=== PATIENT | female | born 2000 | race African-American/Black ===

== ENCOUNTER 2023-12-30 01:01 | Emergency (ER) | payer OTHER ==
[2023-12-30 01:11] VITALS: BMI 25.7
[2023-12-30] MEDS ORDERED: metroNIDAZOLE 250 MG TABLET ONE (01:44)
[2023-12-30] MEDS ORDERED: BUPIVACAINE HCL/PF 0.5% (5MG/ML) 10 ML VIAL ONE (01:46)
[2023-12-30] MEDS: metroNIDAZOLE 250 MG TABLET PO ONE (01:51)
[2023-12-30] MEDS ORDERED: IBUPROFEN 600 MG TABLET (FP) PO ONE (01:55)
[2023-12-30] MEDS: IBUPROFEN 600 MG TABLET (FP) PO ONE (01:59)
[2023-12-30 02:32] LABS: BASO % 0.5 % (0-2.0); EOS % 0.9 % (0-4.5); HEMATOCRIT 33.9 % (32.4-45.2); LYMPH % 35.4 % (8-40); MCH 24.4 pg (25.7-33.7); MCHC 32.5 g/dl (32.0-36.0); MEAN CELL VOLUME 74.9 fl (80-96); MEAN PLT VOLUME 9.4 fl (7.5-11.1); MONO % 5.1 % (3.8-10.2); NEUT % 58.1 % (42.8-82.8); PLATELET COUNT 267 10^3/uL (134-434); RBC 4.52 M/mm3 (3.60-5.2); WHITE BLOOD COUNT 10.8 K/mm3 (4.0-10.0)
[2023-12-30] MEDS: BUPIVACAINE HCL/PF 0.5% (5 MG/ML) 30 ML VIAL IJ ONE (02:40)
[2023-12-30 03:00] LABS: CHLORIDE 104 mmol/L (98-107); POTASSIUM 3.5 mmol/L (3.5-5.1); SODIUM 137 mmol/L (136-145)
[2023-12-30 03:02] LABS: CALCIUM 9.5 mg/dL (8.5-10.1)
[2023-12-30 03:03] LABS: ALBUMIN 4.2 g/dl (3.4-5.0); ANION GAP 11 mmol/L (4-13); BLOOD UREA NITROGEN 12.2 mg/dL (7-18); CO2 23 mmol/L (21-32); GLUCOSE,RANDOM 150 mg/dL (74-106)
[2023-12-30 03:06] LABS: CREATININE 0.8 mg/dL (0.55-1.3); SGOT/AST 22 U/L (15-37); SGPT/ALT 29 U/L (13-61)
[2023-12-30 03:07] LABS: BILIRUBIN,TOTAL 0.4 mg/dL (0.2-1)
[2023-12-30 03:08] LABS: TOT PROT 8.9 g/dl (6.4-8.2)
[2023-12-30 03:09] LABS: ALK PHOS 91 U/L (45-117)
[2023-12-30 05:37] VITALS: BP 129/79; PULSE 100; RESP 18; TEMP 97.9
== END 2023-12-30 06:09 | disposition home or self-care (01) ==
LOC: JER 01:01
DX: K08.89 Other specified disorders of teeth and supporting structures (principal); K02.9 Dental caries, unspecified
CPT/HCPCS: 36415; 70487-TC; 80053; 84702; 85025; 99284-25; Q9967

== ENCOUNTER 2024-04-15 12:16 | Emergency (ER) | payer OTHER ==
[2024-04-15 12:30] VITALS: BP 135/89; PULSE 84; RESP 17; TEMP 98.8; BMI 25.0
[2024-04-15] MEDS ORDERED: AMOX TR/POT CLAV 875MG/125MG TABLETS (FP) ONE (14:14)
[2024-04-15] MEDS: AMOX TR/POT CLAV 875MG/125MG TABLETS (FP) PO ONE (14:16)
== END 2024-04-15 14:27 | disposition home or self-care (01) ==
LOC: JERFT 12:16
DX: T16.2XXA Foreign body in left ear, initial encounter (principal); T16.1XXA Foreign body in right ear, initial encounter; H60.12 Cellulitis of left external ear; H60.11 Cellulitis of right external ear
CPT/HCPCS: 99283-25

== ENCOUNTER 2024-07-26 15:58 | Emergency (ER) | payer OTHER ==
[2024-07-26 16:04] VITALS: BP 133/79; PULSE 95; RESP 20; TEMP 98.6; BMI 25.0
[2024-07-26 18:26] LABS: THROAT:GRP A STREP NOT DETECTED (NOTDETECTED)
[2024-07-26 19:10] LABS: HIV INTERPRETATION NEGATIVE (NEGATIVE)
== END 2024-07-26 19:08 | disposition home or self-care (01) ==
LOC: JERFT 15:58
DX: U07.1 COVID-19 (principal); J02.9 Acute pharyngitis, unspecified; R51.9 Headache, unspecified; R05.9 Cough, unspecified; R21 Rash and other nonspecific skin eruption; R50.9 Fever, unspecified
CPT/HCPCS: 0241U-QW; 36415; 86803; 87389; 87651; 99283-25

== ENCOUNTER 2024-12-01 18:12 | Emergency (ER) | payer OTHER ==
[2024-12-01 18:18] VITALS: BP 126/75; PULSE 106; RESP 16; TEMP 98.8; BMI 26.2
[2024-12-01] MEDS ORDERED: ACETAMINOPHEN INJECTION 100 ML ONE (18:29)
[2024-12-01] MEDS ORDERED: ONDANSETRON 4 MG/2 ML VIAL ONE (18:29)
[2024-12-01] MEDS: SODIUM CHLORIDE 0.9% 500 ML INFUS.BAG IV ONE ×2 (19:00→19:37)
[2024-12-01] MEDS: ACETAMINOPHEN 1000 MG/100 ML BAG IVPB ONE ×2 (19:00→19:37)
[2024-12-01] MEDS: ONDANSETRON 4 MG/2 ML VIAL IVPUSH ONE ×2 (19:00→19:37)
[2024-12-01 19:10] LABS: BASO % 0.3 % (0-2.0); EOS % 0.8 % (0-4.5); HEMATOCRIT 32.9 % (32.4-45.2); HEMOGLOBIN 10.3 GM/dL (10.7-15.3); LYMPH % 18.6 % (8-40); MCH 22.4 pg (25.7-33.7); MCHC 31.4 g/dl (32.0-36.0); MEAN CELL VOLUME 71.4 fl (80-96); MEAN PLT VOLUME 9.4 fl (7.5-11.1); NEUT % 72.3 % (42.8-82.8); PLATELET COUNT 229 10^3/uL (134-434); RBC 4.61 M/mm3 (3.60-5.2); RDW 19.3 % (11.6-15.6); WHITE BLOOD COUNT 6.5 K/mm3 (4.0-10.0)
[2024-12-01] MEDS: FAMOTIDINE 20 MG/50 ML IVPB 20 MG/50 ML MG IVPB ONE (19:36)
[2024-12-01] MEDS: MAG HYDROX/AL HYDROX/SIMETH 30 ML UNIT-DOSE CUP PO ONE (19:36)
[2024-12-01] MEDS: FAMOTIDINE 10 MG TABLET PO ONE (19:37)
[2024-12-01] MEDS: ONDANSETRON *ODT* 4 MG TABLET SL ONE (19:37)
[2024-12-01 19:41] LABS: POTASSIUM 3.5 mmol/L (3.5-5.1)
[2024-12-01 19:43] LABS: ALBUMIN 3.8 g/dl (3.4-5.0); BLOOD UREA NITROGEN 8.9 mg/dL (7-18)
[2024-12-01 19:47] LABS: CREATININE 0.7 mg/dL (0.55-1.3)
[2024-12-01 19:48] LABS: BILIRUBIN,TOTAL 0.5 mg/dL (0.2-1); TOT PROT 7.9 g/dl (6.4-8.2)
== END 2024-12-01 20:07 | disposition home or self-care (01) ==
LOC: JER 18:12
PROC: 3E033NZ Introduction of Analgesics, Hypnotics, Sedatives into Peripheral Vein, Percutaneous Approach (ICD-10-PCS; principal; 2024-12-01)
DX: R11.2 Nausea with vomiting, unspecified (principal); R19.7 Diarrhea, unspecified; R53.83 Other fatigue; R10.13 Epigastric pain; Z20.822 Contact with and (suspected) exposure to COVID-19
CPT/HCPCS: 0241U-QW; 36415; 80053; 83690; 84703; 85025; 99284-25; J0131